=== PATIENT | male | born 1970 | race Caucasian/White ===

== ENCOUNTER 2018-08-29 21:32 | Emergency (ER) | payer BC ==
[2018-08-29] MEDS ORDERED: Sodium Chloride 0.9% 10 ML Syringe FLUSH PRN (21:55)
[2018-08-29] MEDS ORDERED: Ketorolac 30 MG/ML SDV IVPUSH ONE (21:55)
[2018-08-29] MEDS ORDERED: Ondansetron 4 MG/2 ML SDV IVPUSH ONE (21:55)
--- NOTE | 2018-08-29 22:11 | EDM.PDOC ---
ED HPI GENERAL MEDICAL PROBLEM - General Chief Complaint: Abdominal Pain Stated Complaint: Abdominal pain Time Seen by Provider: 08/29/18 21:53 Source of Information: Reports: Patient History Limitations: Reports: No Limitations - History of Present Illness INITIAL COMMENTS - FREE TEXT/NARRATIVE: Patient is a 48-year-old gentleman who presents to the emergency department this evening with a complaint of right lower abdominal and right flank pain. Patient states this is been ongoing for several days, intermittent, achy and sharp at times. Patient states it localizes to right flank and right abdomen. Patient states he had one episode of vomiting today. Patient has no medical illnesses and is not currently taking any medication. Patient does admit to heavy lifting at [employer], and may have overexerted himself last evening. Patient denies fever, chest pain, shortness of breath, bowel changes, dysuria, testicular pain, or sustaining any trauma. Onset: Gradual Duration: Day(s):, Getting Worse, Intermittent Location: Reports: Abdomen, Back Quality: Reports: Ache Severity: Mild Improves with: Reports: None Worsens with: Reports: None Context: Denies: Trauma Associated Symptoms: Reports: Nausea/Vomiting. Denies: Chest Pain, Fever/Chills , Shortness of Breath Right Abdomen Pain Score (Numeric/FACES): 4 - Related Data Allergies Allergy/AdvReac Type Severity Reaction Status Date / Time No Known Allergies Allergy Verified 08/29/18 21:44 Home Meds: Home Meds . [No Known Home Meds] 08/29/18 [History] Past Medical History - Past Health History Medical/Surgical History: Denies Medical/Surgical History Social & Family History - Tobacco Use Years of Tobacco use: 20 - Alcohol Use Days Per Week of Alcohol Use: 7 Number of Drinks Per Day: 6 Total Drinks Per Week: 42 - Recreational Drug Use Recreational Drug Use: No ED ROS GENERAL - Review of Systems Review Of Systems: ROS reveals no pertinent complaints other than HPI. Constitutional: Reports: No Symptoms HEENT: Reports: No Symptoms Respiratory: Reports: No Symptoms Cardiovascular: Reports: No Symptoms Endocrine: Reports: No Symptoms GI/Abdominal: Reports: Abdominal Pain : Reports: Flank Pain. Denies: Dysuria Musculoskeletal: Reports: No Symptoms Skin: Reports: No Symptoms Neurological: Reports: No Symptoms Psychiatric: Reports: No Symptoms Hematologic/Lymphatic: Reports: No Symptoms Immunologic: Reports: No Symptoms ED EXAM, GI/ABD - Physical Exam Exam: See Below Exam Limited By: No Limitations General Appearance: Alert, WD/WN, No Apparent Distress Throat/Mouth: Normal Inspection, Normal Oropharynx, No Airway Compromise Head: Atraumatic, Normocephalic Neck: Normal Inspection Respiratory/Chest: No Respiratory Distress, Lungs Clear, Normal Breath Sounds, No Accessory Muscle Use, Chest Non-Tender Cardiovascular: Regular Rate, Rhythm, No Murmur GI/Abdominal Exam: Normal Bowel Sounds, Soft, No Organomegaly, No Distention, No Abnormal Bruit, No Mass, Tender (Right lower quadrant) (Male) Exam: Normal Inspection Back Exam: CVA Tenderness (R). No: Paraspinal Tenderness, Vertebral Tenderness Extremities: Normal Inspection, Normal Range of Motion, No Pedal Edema Neurological: Alert, Oriented, Normal Cognition Psychiatric: Normal Affect, Normal Mood Skin Exam: Warm, Dry, Intact, Normal Color, No Rash Lymphatic: No Adenopathy Course - Vital Signs Last Recorded V/S: Last Vital Signs Temp 98.1 F 08/29/18 21:40 Pulse 57 L 08/29/18 23:05 Resp 20 08/29/18 23:05 BP 105/65 08/29/18 23:05 Pulse Ox 96 08/29/18 23:05 - Orders/Labs/Meds Orders: Active Orders 24 hr Category Date Time Status Peripheral IV Care [RC] . DIRECTED Care 08/29/18 21:55 Ordered Abdomen Pelvis wo Cont [CT] Stat Exams 08/29/18 21:55 Ordered Sodium Chloride 0.9% [Saline Flush] Med 08/29/18 21:55 Ordered 10 ml FLUSH Q8HR PRN Peripheral IV Insertion Adult [OM.PC] Routine Oth 08/29/18 21:55 Ordered Medication Orders Sodium Chloride (Saline Flush) 10 ml FLUSH Q8HR PRN PRN Reason: keep vein open Last Admin: 08/29/18 22:08 Dose: 10 ml Labs: Laboratory Tests 08/29/18 08/29/18 08/29/18 Range/Units 21:45 22:00 22:00 WBC 4.89 L (5.00-10.00) 10^3/uL RBC 5.09 (4.50-6.00) 10^6/uL Hgb 16.5 (13.0-17.0) g/dL Hct 47.3 (40.0-52.0) % MCV 92.9 H (82.0-92.0) fL MCH 32.4 H (27.0-31.0) pg MCHC 34.9 (32.0-36.0) g/dL RDW 12.0 (11.5-14.5) % Plt Count 202 (150-400) 10^3/uL MPV 9.9 (7.4-10.4) fL Immature Gran % (Auto) 0.2 (0.0-5.0) % Neut % (Auto) 55.1 (50.0-70.0) % Lymph % (Auto) 34.4 (20.0-40.0) % Pinal % (Auto) 7.2 (2.0-8.0) % Eos % (Auto) 2.7 (1.0-3.0) % Baso % (Auto) 0.4 (0.0-1.0) % Immature Gran # (Auto) 0.01 (0.00-0.50) 10^3/uL Neut # (Auto) 2.70 (2.50-7.00) 10^3/uL Lymph # (Auto) 1.68 (1.00-4.00) 10^3/uL Pinal # (Auto) 0.35 (0.10-0.80) 10^3/uL Eos # (Auto) 0.13 (0.10-0.30) 10^3/uL Baso # (Auto) 0.02 (0.00-0.10) 10^3/uL Sodium 141 (136-145) mmol/L Potassium 4.0 (3.3-5.3) mmol/L Chloride 105 (98-115) mmol/L Carbon Dioxide 25.2 (21.0-32.0) mmol/L Anion Gap 14.8 (5-15) mmol/L BUN 12 (6-25) mg/dL Creatinine 0.93 (0.51-1.17) mg/dL Est Cr Clr Drug Dosing 93.98 mL/min Estimated GFR (MDRD) > 60 mL/min Glucose 94 (75 - 99) mg/dL Calcium 8.6 L (8.7-10.3) mg/dL Total Bilirubin 0.8 (0.2-1.0) mg/dL AST 21 (15-37) U/L ALT 31 (12-78) U/L Alkaline Phosphatase 51 (46-116) IU/L Total Protein 6.2 L (6.4-8.2) g/dL Albumin 3.72 (3.00-4.80) g/dL Specimen Type Urine void Urine Color Yellow (YELLOW) Urine Appearance Clear (CLEAR) Urine pH 5.5 (5.0-9.0) Ur Specific Monarch >= 1.030 (1.005-1.030) Urine Protein Negative (NEGATIVE) mg/dL Urine Glucose (UA) Negative (NEGATIVE) mg/dL Urine Ketones Negative (NEGATIVE) mg/dL Urine Occult Blood Negative (NEGATIVE) Urine Nitrite Negative (NEGATIVE) Urine Bilirubin Negative (NEGATIVE) Urine Urobilinogen 0.2 (0.2-1.0) E.U./dL Ur Leukocyte Esterase Negative (NEGATIVE) Meds: Medications Generic Name Dose Route Start Last Admin Trade Name Freq PRN Reason Stop Dose Admin Sodium Chloride 10 ml 08/29/18 21:55 08/29/18 22:08 Saline Flush FLUSH 10 ml Q8HR PRN Administration keep vein open Discontinued Medications Generic Name Dose Route Start Last Admin Trade Name Freq PRN Reason Stop Dose Admin Ketorolac Tromethamine 30 mg 08/29/18 21:55 08/29/18 22:11 Toradol IVPUSH 08/29/18 21:56 30 mg ONETIME ONE Administration Ondansetron HCl 4 mg 08/29/18 21:55 08/29/18 22:08 Zofran IVPUSH 08/29/18 21:56 4 mg ONETIME ONE Administration - Radiology Interpretation Free Text/Narrative:: CT abdomen and pelvis without contrast shows no acute process or renal calculi. - Re-Assessments/Exams Free Text/Narrative Re-Assessment/Exam: 08/29/18 23:29 Patient afebrile, vital signs stable, pain controlled, appears nontoxic, at bedside. Patient will follow-up with PCP tomorrow. Departure - Departure Time of Disposition: 23:30 Disposition: Home, Self-Care 01 Condition: Good Clinical Impression: Abdominal pain Qualifiers: Abdominal location: right lower quadrant Qualified Code(s): R10.31 - Right lower quadrant pain Abdominal muscle strain Qualifiers: Encounter type: initial encounter Qualified Code(s): S39.011A - Strain of muscle, fascia and tendon of abdomen, initial encounter - Discharge Information Instructions: Muscle Strain, [id number], Abdominal Pain, Adult, [id number] Forms: ED Department Discharge Additional Instructions: Follow-up at [facility] tomorrow. Return to emergency department if symptoms continue or worsen. - My Orders Last 24 Hours: My Active Orders 08/29/18 21:55 Peripheral IV Care [RC] . DIRECTED Abdomen Pelvis wo Cont [CT] Stat Sodium Chloride 0.9% [Saline Flush] 10 ml FLUSH Q8HR PRN Peripheral IV Insertion Adult [OM.PC] Routine - Assessment/Plan Last 24 Hours: My Active Orders 08/29/18 21:55 Peripheral IV Care [RC] . DIRECTED Abdomen Pelvis wo Cont [CT] Stat Sodium Chloride 0.9% [Saline Flush] 10 ml FLUSH Q8HR PRN Peripheral IV Insertion Adult [OM.PC] Routine Assessment:: Muscle strain Plan: Follow-up with PCP
[2018-08-29 22:47] LABS: ANION GAP 14.8 mmol/L (5-15); CHLORIDE,CL 105 mmol/L (98-115); SODIUM,NA 141 mmol/L (136-145)
--- NOTE | 2018-08-30 08:03 | CT ---
[id number] CT/CT Abdomen Pelvis WO IV EXAM: CT Abdomen Pelvis WO IV CLINICAL DATA: RIGHT FLANK PAIN X3 HOURS COMPARISON STUDY: None. FINDINGS: Few scattered small hypodense structures throughout the liver, involving both hepatic lobes. Largest is in the left hepatic lobe, measuring 13 mm in diameter. These are nonspecific and too small to accurately characterize on a noncontrast CT. Spleen, adrenal glands, pancreas, and gallbladder are unremarkable. No renal or urinary tract calculi. No hydroureteronephrosis. Urinary bladder is unremarkable. Prostate gland is mildly enlarged. Negative for colitis or diverticulitis. Appendix is normal. No small bowel obstruction or inflammation. No lymphadenopathy, free fluid, or pneumoperitoneum. 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 Synovial herniation pit on the left at the femoral head neck junction. Scattered changes of mild/moderate spondylosis throughout the spine. IMPRESSION: No urinary tract calculi or obstruction. Overall, no acute findings in the abdomen or pelvis. Zafar Andre MD 08/30/18 0802 Thank you for allowing us to participate in the care of your patient.
== END 2018-08-29 23:45 | disposition home or self-care (01) ==
LOC: KA.ED 21:32
DX: S39.011A Strain of muscle, fascia and tendon of abdomen, initial encounter (principal); X50.0XXA Overexertion from strenuous movement or load, initial encounter
CPT/HCPCS: 74176; 80053; 81003; 85025; 96374; 96375; 99284-25; J1885; J2405

== ENCOUNTER 2022-08-01 09:54 | Day surgery (SDC) | payer BC ==
[2022-08-01] MEDS ORDERED: Sodium Chloride 0.9% 10 ML Syringe FLUSH PRN (10:00)
[2022-08-01] MEDS: Lactated Ringers 1,000 ML IV SCH (10:27)
[2022-08-01] MEDS ORDERED: Midazolam 1 MG/ML 2 ML SDV ONE (11:03)
[2022-08-01] MEDS ORDERED: Propofol 200 MG/20 ML SDV ONE (11:03)
== END 2022-08-01 12:55 | disposition home or self-care (01) ==
LOC: KA.SDS 09:54
PROVIDERS: ATTEND Family Medicine
DX: Z12.11 Encounter for screening for malignant neoplasm of colon (principal); D12.6 Benign neoplasm of colon, unspecified; K64.4 Residual hemorrhoidal skin tags; E66.9 Obesity, unspecified; M54.41 Lumbago with sciatica, right side; M54.42 Lumbago with sciatica, left side; G89.29 Other chronic pain; Z79.899 Other long term (current) drug therapy; Z87.891 Personal history of nicotine dependence; Z68.39 Body mass index [BMI] 39.0-39.9, adult
CPT/HCPCS: 00812; J2250; J2704; J7120